=== PATIENT | male | born 1955 | race Caucasian/White ===

== ENCOUNTER 2022-12-09 09:04 | Emergency (ER) | payer MEDICARE, SELFPAY ==
[2022-12-09 09:24] VITALS: BP 168/82; PULSE 77; RESP 16; TEMP 36.6; O2SAT 97; BMI 27.6
--- NOTE | 2022-12-09 09:34 | ED.MALEGU ---
HPI - Male Genitourinary General Chief complaint: Urogenital-Male Stated complaint: Abdnormal lab results, says bladder infection,cath Time Seen by Provider: 12/09/22 09:20 History of Present Illness HPI Narrative: This gentleman comes to the emergency department today because he has an abnormal urine test and he did not know what to make of it so he messaged his on-call provider who suggested he come to the ER for antibiotics. The setting for this is that he had a urinary catheter placed in late October and is seeing a urologist who is planning on prostate biopsies and further treatment in the coming weeks. Was treated for urinary tract infection with antibiotics which concluded last . The urinalysis result which he is seeing is from that day. He had taken antibiotics within 24 hours of the urine specimen in question. I did review the urine test on his phone in the [employer] [facility] which showed leukocytes, staph epidermidis at [phone] colony-forming units on the culture. The patient has no dysuria, urgency or frequency some vague suprapubic discomfort that has been present ever since the Rodríguez catheter was placed. No flank pain no fever no chills. No nausea no vomiting. Related Data Home Medications Medication Instructions Recorded Confirmed Simvastatin (ZOCOR) 10 mg PO ##0 01/15/12 bupropion HCl 150 mg tablet,12 hr 150 mg PO BID ##0 01/15/12 sustained-release (Wellbutrin SR) Allergies Allergy/AdvReac Type Severity Reaction Status Date / Time INGREDIENT: NKDA - NO KNOWN Allergy Unknown Uncoded 01/01/18 12:13 DRUG ALLERGIES Review of Systems Review of Systems Narrative: GENERAL: Alert, cooperative and in no distress. HEAD: Atraumatic. Normocephalic. EYES: Sclera are clear without icterus. Extraocular movements are full. ENT: No rhinorrhea. Oropharynx is moist. Mouth exam is benign. NECK: Supple. Full range of motion. CARDIOVASCULAR: Normal rate and rhythm without murmur gallop or rub. RESPIRATORY: Clear to auscultation. Breath sounds equal bilaterally. No wheezes, rales, or rhonchi. GASTROINTESTINAL: Abdomen soft, non-tender, nondistended. EXTREMITIES: No edema, full range of motion. No obvious trauma. BACK: Normal inspection, no CVA tenderness. NEURO: Nonfocal examination, normal speech, normal gait. SKIN: No rash or erythema of visible areas PSYCH: Normally oriented. Normal range of affect. Appropriate behavior Exam Initial Vital Signs Initial Vital Signs: Vital Signs Temperature 97.8 F 12/09/22 09:24 Pulse Rate 77 12/09/22 09:24 Respiratory Rate 16 12/09/22 09:24 Blood Pressure 168/82 H 12/09/22 09:24 Pulse Oximetry 97 12/09/22 09:24 Oxygen Delivery Method Room Air 12/09/22 09:24 Course Course Course Narrative: We had a lengthy discussion about the nature of urinalysis results in the setting of Rodríguez catheter. I do not think antibiotics are indicated at this time. I recommend outpatient follow-up this coming week. I think the risks of antibiotics far outweigh the expected benefit at this point. Repeat urinalysis is also not indicated given his lack of symptoms. Vital Signs Vital signs: Vital Signs - 8 hr 12/09/22 09:24 Temperature 97.8 F Pulse Rate 77 Respiratory Rate 16 Blood Pressure 168/82 H Pulse Oximetry 97 Oxygen Delivery Method Room Air Discharge Plan Departure Patient Disposition: Home Clinical Impression: Abnormal result on screening urine test Activity Restrictions/Additional Instructions: I do not think that there is any need for action at this time. I do not believe that additional antibiotics are indicated or appropriate. I think they are much more likely to cause problems than benefit you. Unless you develop symptoms of infection such as chills, fever, abdominal pain, etcetera, I think it is safe to wait until you talk to your urologist or primary care doctor this coming week about next appropriate steps for evaluation and treatment. People who have indwelling Rodríguez catheters uniformly have abnormal urine tests. Unless you have symptoms of urinary tract infection almost universally the recommendation is to avoid antibiotics. Prescriptions: No Action bupropion HCl [Wellbutrin SR] 150 MG tablet extended release 12 hr 150 mg PO BID Qty: 0 Simvastatin (ZOCOR) 10 mg PO Qty: 0 Referrals: Katie Hirsch MD [Primary Care Provider] - Stand Alone Forms: Patient Portal/API
== END 2022-12-09 09:38 | disposition home or self-care (01) ==
PROVIDERS: Emergency Provider Family Medicine Addiction Medicine; PCP Family Medicine
DX: R82.90 Unspecified abnormal findings in urine (principal)
CPT/HCPCS: 99281

== ENCOUNTER 2023-07-13 17:09 | Emergency (ER) | payer MEDICARE, SELFPAY ==
[2023-07-13] VITALS (17 sets, daily range): BP systolic 138–205; BP diastolic 83–118; PULSE 66–96; RESP 9–43; TEMP 36.7; O2SAT 93–99; BMI 28.2
--- NOTE | 2023-07-13 17:18 | DI.RAD.S_ITS ---
PROCEDURE: XR CHEST 1V INDICATIONS: chest pain TECHNIQUE: One view of the chest was acquired. COMPARISON: None. FINDINGS: Surgical changes and devices: None. Lungs and pleura: Lungs are clear. No pleural effusions or pneumothorax. Mediastinum: Mediastinal contours appear normal. Heart size is enlarged. Atherosclerotic vascular calcification noted in the aortic arch. Bones and chest wall: No suspicious bony lesions. Overlying soft tissues appear unremarkable. IMPRESSION: Cardiomegaly without vascular congestion Approved by: Jw Daniels M.D. on 07/13/2023 at 17:23
[2023-07-13 17:31] LABS: Add Manual Diff / Slide Review NO; Basophils Absolute Auto 0 /uL (0-100); Eosinophils Absolute Auto 100 /uL (0-450); Eosinophils Percent Auto 2.6 % (2-4); Hematocrit 36.9 % (41-53); Hemoglobin 12.6 g/dL (13.5-17.5); Lymphocytes Absolute Auto 1300 /uL (1100-4500); Mean Corpuscular HGB Conc 34.1 % (30-36); Mean Corpuscular Hemoglobin 31.7 PG (26-34); Mean Corpuscular Volume 93.2 fL (80-100); Monocytes Absolute Auto 600 /uL (0-900); Monocytes Percent Auto 12.3 % (3-14); Neutrophils Absolute Auto 3000 /uL (1500-7000); Neutrophils Percent Auto 59.1 % (50-75); Platelet Count 188 X10^3/uL (150-400); Red Blood Cell Count 3.97 X10^6/uL (4.5-5.9)
[2023-07-13 17:45] LABS: Prothrombin Time 11.2 SECONDS (10.1-12.7)
[2023-07-13 17:47] LABS: PTT Partial Thromboplastin Tim 27 SECONDS (26-36)
[2023-07-13 17:52] LABS: Alanine Aminotransferase 24 IU/L (<50); Albumin 3.8 g/dL (3.5-5.0); Albumin Globulin Ratio 1.4 (1.0-2.8); Alkaline Phosphatase 121 U/L (38-126); Aspartate Aminotransferase 37 IU/L (17-59); BUN Creatinine Ratio 21.5 (6-22); Bilirubin Total 0.2 mg/dL (0.2-1.3); Blood Urea Nitrogen 26 mg/dL (9-20); Calcium 9.6 mg/dL (8.4-10.2); Carbon Dioxide 29 mmol/L (22-32); Chloride 103 mmol/L (98-107); Creatine Kinase 258 U/L (55-170); Estimated Glomerular Filt Rate > 60 mL/min (>60); Globulin 2.8 g/dL (1.7-4.1); Glucose 99 mg/dL (80-110); HEMOLYSIS < 15 (0-50); Magnesium 2.1 mg/dL (1.6-2.3); Potassium 3.8 mmol/L (3.4-5.1); Sodium 138 mmol/L (137-145); Total Protein 6.6 g/dL (6.3-8.2)
[2023-07-13] MEDS: ONDANSETRON 4 MG/2 ML INJ IV ×2 (17:55→18:17)
[2023-07-13 18:03] LABS: Troponin I < 0.012 ng/mL (0.01-0.034)
[2023-07-13 18:06] LABS: Lipase 105 U/L (23-300)
--- NOTE | 2023-07-13 18:08 | ED_ITS ---
HPI - Abdominal Pain General Chief Complaint: Abdominal Pain Stated Complaint: Abd Pain Time Seen by Provider: 07/13/23 17:09 Source: patient and EMS Mode of arrival: EMS Limitations: no limitations History of Present Illness HPI narrative: 68-year-old male with history of prostate cancer had prostatectomy month and a half ago on 3 antidepressants in a new testosterone john as a month ago. Patient presents with nausea vomiting and epigastric pain that radiates up to his chest, his back as well as down into his abdomen. He states this started fairly abruptly today but has been gradually worsening. Patient notes he did have some non past rise apple juice which was sort of STEMI and had a little bit of dirt in it that was given to him several days ago thinks he might have some food poisoning. Patient denies fevers, denies diaphoresis, no passing out, no cold cough or congestion. Patient denies any diarrhea he states no bowel movement for 24 hours had a very small pebble of stool this afternoon but did have bowel movement yesterday. 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 He states his emesis has been mostly dry heaves but sometimes food. Patient states no dysuria, urgency or frequency. Denies any pain or weakness radiating down his legs. Patient states home meds including bupropion, mirtazapine, fluoxetine and now testosterone john. He states surgical history includes prostatectomy a month and a half ago, wrist surgery, sleep apnea surgery. Denies any drug allergies. No tobacco, alcohol or illicit. Patient lives on [address]. Related Data Home Medications Medication Instructions Recorded Confirmed Simvastatin (ZOCOR) 10 mg PO ##0 01/15/12 bupropion HCl 150 mg tablet,12 hr 150 mg PO BID ##0 01/15/12 sustained-release (Wellbutrin SR) Allergies Allergy/AdvReac Type Severity Reaction Status Date / Time No Known Drug Allergies Allergy Verified 07/13/23 17:18 Review of Systems Review of Systems ROS Unobtainable: All systems reviewed & are unremarkable except as noted in HPI and below Patient History Social History Smoking Status: Former smoker Smoking Status: Former smoker alcohol intake frequency: 0-2 drinks per day Substance Use Type: does not use Exam Narrative Exam Narrative: GENERAL: Alert and oriented x three, well-nourished male in moderate distress. HEENT: Head normocephalic, atraumatic, EOMI, pupils reactive, face symmetric, moist mucous membranes NECK: Supple, full range of motion CARDIOVASCULAR: Regular rate and rhythm without murmurs, rubs or gallops. RESPIRATORY: Breath sounds equal bilaterally, no wheezes rales or rhonchi. No tachypnea. No accessory muscle use. ABDOMEN: Soft, nontender. Normoactive bowel sounds all 4 quadrants. No guarding or rebound, rigidity, no mass, no pulsatile mass or bruit. Patient has a very small amount of light brown emesis with food an active dry heaves in the room. : No CVA tenderness BACK: No cervical, thoracic or lumbar vertebral point tenderness. Patient has normal range of motion. Patient's gait is normal. EXTREMITIES: Normal range of motion, no clubbing or edema. Neurovascularly intact NEUROLOGICAL: Cranial nerves II through XII grossly intact. Moving all extremities SKIN: Warm, dry, no petechiae, no rashes or lesions. Initial Vital Signs Initial Vital Signs: Vital Signs Pulse Rate 67 07/13/23 17:16 Respiratory Rate 14 07/13/23 17:16 Blood Pressure 172/88 H 07/13/23 17:16 Pulse Oximetry 99 07/13/23 17:16 Oxygen Delivery Method Room Air 07/13/23 17:16 Course Orders Ordered: ED Orders 07/13/23 17:18 XR chest 1V Stat EKG-12 Lead Stat 07/13/23 17:22 Complete Blood Count AUTO DIFF Stat Comprehensive Metabolic Panel Stat Lipase Stat Magnesium Stat PTT Partial Thromboplastin Hira Stat Prothrombin Time INR Stat Troponin & CK Cardiac Panel Stat 07/13/23 18:21 CT angio chest abdomen pelvis Stat 07/13/23 19:16 Covid-19 + FLU A/B + RSV - PCR Stat Discontinued Medications Hydrocodone Bitart/Acetaminophen (Hydrocodone/Acet 5/325 Prepack) 1 bottle MISC SEEINSTR ONE Stop: 07/13/23 21:47 Last Admin: 07/13/23 22:01 Dose: 1 bottle Documented By: TAYA Al Hydrox/Mg Hydrox/Simethicone 20 ml/ Lidocaine HCl 15 ml 0 ml PO NOW ONE Stop: 07/13/23 21:09 Last Admin: 07/13/23 21:10 Dose: 35 ml Documented By: RL Ketorolac Tromethamine (Ketorolac 30 Mg/Ml Vial) 15 mg IV NOW ONE Stop: 07/13/23 18:22 Last Admin: 07/13/23 18:26 Dose: 15 mg Documented By: TAYA Lorazepam (Lorazepam 2 Mg/Ml Inj) 0.5 mg IV NOW ONE Stop: 07/13/23 18:22 Last Admin: 07/13/23 18:26 Dose: 0.5 mg Documented By: TAYA Morphine Sulfate (Morphine 4 Mg/Ml Inj) 4 mg IV NOW ONE Stop: 07/13/23 21:04 Last Admin: 07/13/23 21:46 Dose: Not Given Documented By: TAYA Ondansetron HCl (Ondansetron 4 Mg/2 Ml Inj) 4 mg IV NOW ONE Stop: 07/13/23 17:53 Last Admin: 07/13/23 17:55 Dose: 4 mg Documented By: TAYA Ondansetron HCl (Ondansetron 4 Mg/2 Ml Inj) 4 mg IV NOW ONE Stop: 07/13/23 18:18 Last Admin: 07/13/23 18:17 Dose: 4 mg Documented By: TAYA Ondansetron HCl (Ondansetron 4 Mg Odt Prepack) 1 bottle MISC SEEINSTR ONE Stop: 07/13/23 21:02 Last Admin: 07/13/23 22:01 Dose: 1 bottle Documented By: TAYA Ondansetron HCl (Ondansetron 4 Mg Odt Prepack) 1 bottle MISC SEEINSTR ONE Stop: 07/13/23 21:47 Last Admin: 07/13/23 21:47 Dose: Not Given Documented By: TAYA Vital Signs Vital signs: Vital Signs - 8 hr 07/13/23 17:16 07/13/23 17:18 07/13/23 17:19 Temperature Pulse Rate 67 69 67 Respiratory Rate 14 43 H 39 H Blood Pressure 172/88 H Pulse Oximetry 99 98 97 Oxygen Delivery Method Room Air 07/13/23 17:19 07/13/23 17:30 07/13/23 17:31 Temperature Pulse Rate 70 71 Respiratory Rate 36 H 36 H Blood Pressure 172/88 H Pulse Oximetry 97 95 Oxygen Delivery Method 07/13/23 17:31 07/13/23 17:50 07/13/23 17:51 Temperature 98.1 F Pulse Rate Respiratory Rate Blood Pressure 177/104 H 187/105 H Pulse Oximetry Oxygen Delivery Method 07/13/23 17:51 07/13/23 18:00 07/13/23 18:00 Temperature Pulse Rate 71 70 Respiratory Rate 30 H 36 H Blood Pressure 179/99 H Pulse Oximetry 96 97 Oxygen Delivery Method 07/13/23 18:15 07/13/23 18:15 07/13/23 18:46 Temperature Pulse Rate 96 H 75 Respiratory Rate 37 H 41 H Blood Pressure 205/118 H Pulse Oximetry 96 Oxygen Delivery Method 07/13/23 19:00 07/13/23 19:30 07/13/23 20:00 Temperature Pulse Rate 71 70 69 Respiratory Rate 24 22 24 Blood Pressure Pulse Oximetry 96 93 93 Oxygen Delivery Method Room Air 07/13/23 20:30 07/13/23 20:45 07/13/23 20:45 Temperature Pulse Rate 67 69 Respiratory Rate 20 9 L Blood Pressure 147/87 H Pulse Oximetry 94 95 Oxygen Delivery Method 07/13/23 21:00 07/13/23 21:00 07/13/23 22:02 Temperature Pulse Rate 66 83 Respiratory Rate 25 H Blood Pressure 138/83 145/90 H Pulse Oximetry 95 98 Oxygen Delivery Method Room Air MDM - Abdominal Pain Lab Data 07/13/23 17:22 07/13/23 17:22 Labs: Lab Results 07/13/23 07/13/23 Range/Units 17:22 19:16 WBC 5.0 (4.5-11.0) X10^3/uL RBC 3.97 L (4.5-5.9) X10^6/uL Hgb 12.6 L (13.5-17.5) g/dL Hct 36.9 L (41-53) % MCV 93.2 (80-100) fL MCH 31.7 (26-34) PG MCHC 34.1 (30-36) % RDW 13.0 (11.6-14.8) % Plt Count 188 (150-400) X10^3/uL Neut % (Auto) 59.1 (50-75) % Lymph % (Auto) 25.0 (25-40) % Sharp % (Auto) 12.3 (3-14) % Eos % (Auto) 2.6 (2-4) % Baso % (Auto) 1.0 (0-2) % Neut # (Auto) 3000 (7165-6911) /uL Lymph # (Auto) 1300 (3721-1325) /uL Sharp # (Auto) 600 (0-900) /uL Eos # (Auto) 100 (0-450) /uL Baso # (Auto) 0 (0-100) /uL PT 11.2 (10.1-12.7) SECONDS INR 1.0 (0.9-1.3) APTT 27 (26-36) SECONDS Sodium 138 (137-145) mmol/L Potassium 3.8 (3.4-5.1) mmol/L Chloride 103 (98-107) mmol/L Carbon Dioxide 29 (22-32) mmol/L BUN 26 H (9-20) mg/dL Creatinine 1.21 (0.66-1.25) mg/dL Estimated GFR > 60 (>60) mL/min BUN/Creatinine Ratio 21.5 (6-22) Glucose 99 (80-110) mg/dL Calcium 9.6 (8.4-10.2) mg/dL Magnesium 2.1 (1.6-2.3) mg/dL Total Bilirubin 0.2 (0.2-1.3) mg/dL AST 37 (17-59) IU/L ALT 24 (<50) IU/L Alkaline Phosphatase 121 (38-126) U/L Total Creatine Kinase 258 H (55-170) U/L Troponin I < 0.012 (0.01-0.034) ng/mL Total Protein 6.6 (6.3-8.2) g/dL Albumin 3.8 (3.5-5.0) g/dL Globulin 2.8 (1.7-4.1) g/dL Albumin/Globulin Ratio 1.4 (1.0-2.8) Lipase 105 (23-300) U/L SARS-CoV-2 (PCR) Negative (Negative) Influenza A (RT-PCR) Flu a negative (NEGATIVE) Influenza B (RT-PCR) Flu b negative (NEGATIVE) RSV (PCR) Negative (Negative) Point of care testing: Urine Dip Bedside Urine Glucose Negative Bedside Urine Bilirubin - Negative Bedside Urine Ketone - Negative Urine Specific [place] 1.010 Bedside Urine Occult Blood - Negative Bedside Urine pH 7.0 Bedside Urine Protein - Negative Bedside Urine Urobilinogen - Negative Bedside Urine Nitrite - Negative Bedside Urine Leukocytes - Negative Esterase Imaging Data Chest x-ray: Radiologist's Impression: Close Chest/Abdomen/Pelvis CTA (Signed) [facility] 07/13/23 Chest X-Ray (Signed) [facility] 07/13/23 Launch?[address] [address] XRay Report Signed Patient: Alex Pierce MR#: [id number] : 1955 Acct:[id number] Age/Sex: 68 / M Date of Service: 07/13/23 Loc: ED Accession Number: [id number] Procedure: XR chest 1V Ordering Provider: Katharina Thayer D.O. PROCEDURE: XR CHEST 1V INDICATIONS: chest pain TECHNIQUE: One view of the chest was acquired. COMPARISON: None. FINDINGS: Surgical changes and devices: None. Lungs and pleura: Lungs are clear. No pleural effusions or pneumothorax. Mediastinum: Mediastinal contours appear normal. Heart size is enlarged. Atherosclerotic vascular calcification noted in the aortic arch. Bones and chest wall: No suspicious bony lesions. Overlying soft tissues appear unremarkable. IMPRESSION: Cardiomegaly without vascular congestion Approved by: Jw Daniels M.D. on 07/13/2023 at 17:23 CTA chest/abd/pelvis: Radiologist's Impression: Alex Pierce??68??M??1955 ? Allergy/Adv: No Known Drug Allergies Close Chest/Abdomen/Pelvis CTA (Signed) [facility] 07/13/23 Chest X-Ray (Signed) [facility] - 07/13/23 Launch?[address] [address] [address] Scan Report Signed Patient: Alex Pierce MR#: [id number] : 1955 Acct:[id number] Age/Sex: 68 / M Date of Service: 07/13/23 Loc: ED Accession Number: [id number] Procedure: CT angio chest abdomen pelvis Ordering Provider: Trina Yoder D.O. PROCEDURE: CT ANGIO CHEST ABDOMEN PELVIS INDICATIONS: thoracic, epigastric to abd, vomiting, no BM x 24 hours TECHNIQUE: Precontrast 5 mm thick sections acquired from the lung apices to the iliac crests. After the administration of intravenous contrast, 2.5 mm thick sections again acquired from the lung apices to the iliac crests. Maximum intensity projection (MIP) oblique sagittal and coronal reformats were then acquired. For radiation dose reduction, the following was used: automated exposure control. COMPARISON: None. FINDINGS: Chest: Cardiovascular: Heart size is normal. No evidence of pulmonary embolism, aortic aneurysm or dissection. Lungs and pleural spaces: Mild scarring chronic interstitial change noted in the right upper lobe anteriorly. Dependent atelectasis noted. No focal infiltrate, pneumothorax or pleural effusion. Lymph nodes: No mediastinal, hilar or axillary adenopathy. Mediastinum: Unremarkable. No hiatal hernia. Thyroid within normal limits. Chest Wall and Bones: Unremarkable. No acute fracture. Abdomen and Pelvis: Liver: Hypodensities in the liver subcentimeter likely reflects cysts. Biliary system: Calcified stones noted in the lumen of the gallbladder. No pericholecystic inflammatory change. No intra or extrahepatic bile duct dilation. Pancreas: Unremarkable without mass or inflammation evident. Spleen: Normal in size and density. Adrenals: Normal morphology and density. Reproductive system: Prostate ectomy Urinary system: Normal renal size and attenuation. No renal calculi, hydronephrosis, or solid mass present. Urinary bladder unremarkable. Gastrointestinal system: The bowel is unremarkable with no evidence of bowel obstruction or inflammation. The stomach appears unremarkable. Appendix: Normal appendix identified. No evidence of appendicitis. Lymph nodes: No mesenteric or retroperitoneal adenopathy. Peritoneal spaces: No free air. No free fluid. Vasculature: The IVC, aorta and iliac vasculature are unremarkable. Abdominal wall: Abdominal wall intact without evidence of ventral or inguinal hernias. Musculoskeletal: Normal bone mineralization. Degenerative disc disease and arthropathy noted in lower lumbar spine. No acute fractures. IMPRESSION: 1. No evidence of pulmonary embolism, aortic dissection or aneurysm. 2. Small focus of right upper lobe scarring or atelectasis noted anteriorly. No gross pulmonary infiltrate, pneumothorax or pleural effusion. 3. Cholelithiasis without CT evidence of acute cholecystitis Approved by: Jw Daniels M.D. on 07/13/2023 at 17:56 ECG Data Attestation: I personally reviewed and interpreted this ECG as follows: Interpretation: Sinus rhythm, left axis deviation, nonspecific change. Rate of 60 6p are 154 QRS 88 QTC of 459. Patient has prior from 03/30/2009 which appears similar. [facility] Narrative Medical decision making narrative: 68-year-old male comes in with fairly sudden onset of nausea vomiting without diarrhea, epigastric pain that he states radiates to his chest his thoracic back and down to his abdomen. Patient has had little bit emesis, initial workup shows normal white count, hemoglobin of 12.6 platelets of 188, electrolytes are appropriate 138 and 3.8, BUN 26 creatinine 1.21, glucose 99 INR is 1 LFTs are negative CK is 258 with negative troponin lipase is negative. Urine is negative. No acute EKG changes. Patient had chest x-ray shows cardiomegaly. CT angio was obtained secondary to his pain. Does not show any aortic changes, chest x-ray shows some old possible scarring, no obvious pneumonia, patient has cholelithiasis but without signs of infection. He is nontender in the right upper quadrant on exam and CT angio overall is otherwise negative. COVID/influenza/RSV panel was sent and is negative. Patient does suspect this maybe food poisoning as he had some non past rise apple juice that he states was pretty scummy and maybe questionable. He is not sure exactly how little it is but at least several days. Based on the do feel to appropriate for some additional imaging. Patient is nontender on examination. Patient was given antinausea medications with minimal improvement, fluids, was given additional dose as well as some pain medication. On recheck patient has been feeling much improved but states pain is starting recurr in lower abdomen, No increase in pain with palpatin. States no increase in nausea. BP has improved in department was watching videos on phone on recheck. Patient had GI cocktail with improvement of symptoms. He is continuing to be improved we will discharge home with antinausea and pain medication with return precautions. Discharge Plan Departure Patient Disposition: Home Clinical Impression: Cholelithiasis, Nausea and vomiting Instructions: DI for Abdominal Pain-Adult Activity Restrictions/Additional Instructions: Your imaging today did show gallstones but no signs of infection. Your workup today overall has been reassuring. If you have persistent symptoms but significantly improved follow up with primary care if worsening please return. You may take Zofran 1 tablet every 6 hours as needed for nausea. You may take Tylenol up to a 1000 mg every 6 hours and/or ibuprofen up to 600 mg every 6 hours as needed for pain. If in adequate you may take narcotic pain medication as prescribed. You may take 1 or 2 tablets every 6 hours as needed for pain. This medication can make you sleepy do not drive, perform hazardous activities or make any major decisions while taking it. This medication will make you constipated please take a stool softener once to twice daily until stools are soft and regular. Please return for new or worsening symptoms, fevers, new or worsening chest pain, shortness of breath, lightheadedness or passing out, persistent vomiting, no abdominal back or flank pain or other new or concerning changes. Prescriptions: No Action bupropion HCl [Wellbutrin SR] 150 MG tablet extended release 12 hr 150 mg PO BID Qty: 0 Simvastatin (ZOCOR) 10 mg PO Qty: 0 Referrals: Katie Hirsch MD [Primary Care Provider] - Stand Alone Forms: Patient Portal/API
--- NOTE | 2023-07-13 18:21 | DI.CT.S_ITS ---
PROCEDURE: CT ANGIO CHEST ABDOMEN PELVIS INDICATIONS: thoracic, epigastric to abd, vomiting, no BM x 24 hours TECHNIQUE: Precontrast 5 mm thick sections acquired from the lung apices to the iliac crests. After the administration of intravenous contrast, 2.5 mm thick sections again acquired from the lung apices to the iliac crests. Maximum intensity projection (MIP) oblique sagittal and coronal reformats were then acquired. For radiation dose reduction, the following was used: automated exposure control. COMPARISON: None. FINDINGS: Chest: Cardiovascular: Heart size is normal. No evidence of pulmonary embolism, aortic aneurysm or dissection. Lungs and pleural spaces: Mild scarring chronic interstitial change noted in the right upper lobe anteriorly. Dependent atelectasis noted. No focal infiltrate, pneumothorax or pleural effusion. Lymph nodes: No mediastinal, hilar or axillary adenopathy. Mediastinum: Unremarkable. No hiatal hernia. Thyroid within normal limits. Chest Wall and Bones: Unremarkable. No acute fracture. Abdomen and Pelvis: Liver: Hypodensities in the liver subcentimeter likely reflects cysts. Biliary system: Calcified stones noted in the lumen of the gallbladder. No pericholecystic inflammatory change. No intra or extrahepatic bile duct dilation. Pancreas: Unremarkable without mass or inflammation evident. Spleen: Normal in size and density. Adrenals: Normal morphology and density. Reproductive system: Prostate ectomy Urinary system: Normal renal size and attenuation. No renal calculi, hydronephrosis, or solid mass present. Urinary bladder unremarkable. Gastrointestinal system: The bowel is unremarkable with no evidence of bowel obstruction or inflammation. The stomach appears unremarkable. Appendix: Normal appendix identified. No evidence of appendicitis. Lymph nodes: No mesenteric or retroperitoneal adenopathy. Peritoneal spaces: No free air. No free fluid. Vasculature: The IVC, aorta and iliac vasculature are unremarkable. Abdominal wall: Abdominal wall intact without evidence of ventral or inguinal hernias. Musculoskeletal: Normal bone mineralization. Degenerative disc disease and arthropathy noted in lower lumbar spine. No acute fractures. IMPRESSION: 1. No evidence of pulmonary embolism, aortic dissection or aneurysm. 2. Small focus of right upper lobe scarring or atelectasis noted anteriorly. No gross pulmonary infiltrate, pneumothorax or pleural effusion. 3. Cholelithiasis without CT evidence of acute cholecystitis Approved by: Jw Daniels M.D. on 07/13/2023 at 17:56
[2023-07-13] MEDS: KETOROLAC 30 MG/ML VIAL 15 MG IV (18:26)
[2023-07-13] MEDS: LORazepam 2 MG/ML INJ 0.5 MG IV (18:26)
[2023-07-13 19:58] LABS: Influenza A - CEPHEID Flu A NEGATIVE (NEGATIVE); Influenza B - CEPHEID Flu B NEGATIVE (NEGATIVE); Respiratory Syncytial Virus Negative (Negative)
[2023-07-13 20:29] LABS: COVID-19 CEPHEID 4-PLEX PCR Negative (Negative)
[2023-07-13] MEDS: MAG HYDROX/ALUMINUM/SIMETH SUS 20 ML, LIDOCAINE VISCOUS 2% 15 ML PO (21:10)
[2023-07-13] MEDS: HYDROCODONE/ACET 5/325 PREPACK 1 BOTTLE MISC (22:01)
[2023-07-13] MEDS: ONDANSETRON 4 MG ODT PREPACK 1 BOTTLE MISC (22:01)
== END 2023-07-13 22:12 | disposition home or self-care (01) ==
PROVIDERS: Emergency Medicine; Emergency Provider Emergency Medicine; PCP Family Medicine
DX: K80.20 Calculus of gallbladder without cholecystitis without obstruction (principal); R07.9 Chest pain, unspecified; R11.2 Nausea with vomiting, unspecified; Z20.822 Contact with and (suspected) exposure to COVID-19
CPT/HCPCS: 0241U; 36415; 71045; 71275; 74174; 80053; 81003; 82550; 83690; 83735; 84484; 85025; 85610; 85730; 96374; 96375; 96376; 99284; 99285; J1885; J2060; J2405; Q9967

== ENCOUNTER → 2024-02-25 10:10 | Outpatient (CLI) | payer MEDICARE, SELFPAY ==
--- NOTE | 2024-02-25 | DI.US.S_ITS ---
PROCEDURE: US ABDOMEN COMPLETE INDICATIONS: melena, abdominal pain, calculus of gallbladder w/o cholecys TECHNIQUE: Real-time scanning was performed of the abdominal and retroperitoneal organs, with image documentation. COMPARISON: [facility], CT, CT ANGIO CHEST ABDOMEN PELVIS, 07/13/2023, 18:24. FINDINGS: Liver: Liver is normal in size and homogeneous in echotexture. Benign hepatic cysts without nodularity. Gallbladder: Gallbladder sludge versus small stones. No wall thickening or pericholecystic edema to suggest acute cholecystitis. Biliary ducts: Intrahepatic bile ducts are non-dilated. Extrahepatic bile duct caliber measures 14 mm. Normal is 6-7 mm or less in diameter, or 10 mm or less post-cholecystectomy. Pancreas: Visualized portions of the pancreas are sonographically normal. Spleen: Spleen is normal in size and homogeneous in echotexture. Kidneys: Kidneys are normal in size and echotexture. Right kidney measures 9.8 cm long; left kidney measures 10.1 cm long. No hydronephrosis or nephrolithiasis. No solid masses. Aorta: Infrarenal aortic aneurysm measuring 3.1 centimeter. Iliacs: Proximal common iliac arteries are normal in caliber at less than 2.5 cm. IVC: Intrahepatic inferior vena cava is patent. Miscellaneous: No free abdominal fluid. IMPRESSION: Gallbladder sludge versus small stones. No wall thickening or pericholecystic edema to suggest acute cholecystitis. Dilated common bile duct measuring 14 millimeters. Choledocholithiasis is not excluded. Correlate with bilirubin and consider MRCP if concerned about obstruction. Infrarenal aortic aneurysm measuring 3.1 centimeter. Recommend 5 year follow-up with ultrasound. Dictated by: Arie Isbell M.D. on 02/25/2024 at 13:37 Approved by: Arie Isbell M.D. on 02/25/2024 at 13:39
== END ==
PROVIDERS: PCP Family Medicine; Referring Provider Family Medicine; Visit Provider Family Medicine
DX: K92.1 Melena (principal); K83.8 Other specified diseases of biliary tract; K76.89 Other specified diseases of liver; I71.43 Infrarenal abdominal aortic aneurysm, without rupture; R10.30 Lower abdominal pain, unspecified; K80.20 Calculus of gallbladder without cholecystitis without obstruction
CPT/HCPCS: 76700

== ENCOUNTER 2025-04-25 20:56 | Emergency (ER) | payer MEDICARE, SELFPAY ==
[2025-04-25 21:28] VITALS: BP 148/85; PULSE 80; RESP 16; TEMP 36.6; O2SAT 95; BMI 28.8
[2025-04-26] VITALS (7 sets, daily range): BP systolic 160–163; BP diastolic 86–92; PULSE 64–71; O2SAT 92–97
[2025-04-26 02:51] LABS: Culture Indicated Urine Cult Not Indicated
--- NOTE | 2025-04-26 02:54 | DI.CT.S_ITS ---
PROCEDURE: CT ABDOMEN PELVIS WO CON INDICATIONS: Hematuria, calcium oxalate in urinalysis TECHNIQUE: CT of the abdomen and pelvis was obtained without intravenous contrast. Coronal and sagittal reformats were performed. For radiation dose reduction, the following was used: automated exposure control, adjustment of mA and/or kV according to patient size. COMPARISON: [facility], CT, CT ANGIO CHEST ABDOMEN PELVIS, 07/13/2023, 18:24. FINDINGS: Image quality: Diagnostic. Lower Chest: Bibasilar atelectasis. Small hiatal hernia. Heart size is normal. ABDOMEN: Liver: No contour-deforming mass. Multiple hepatic hypodensities are redemonstrated. Gallbladder: Cholelithiasis. Mild contracted gallbladder. No significant pericholecystic stranding identified. Biliary ducts: No biliary dilation. Pancreas: No ductal dilation. Spleen: Size is within normal limits. Adrenal Glands: No adrenal nodules. Kidneys and Ureters: No hydronephrosis. No contour-deforming mass. No renal stones. Bilateral ureters are normal in course and caliber. No ureteral stones seen. No significant perinephric or periureteral stranding. Stomach and Bowel: Normal colonic caliber, without significant wall thickening. Moderate fecal burden seen throughout the colon. Scattered colonic diverticula without acute inflammation. Normal appendix No evidence for small bowel obstruction or associated inflammatory changes. Peritoneum: No abnormal intraperitoneal fluid. No free air. Ventral Wall: No significant hernia. Abdominal Nodes: No retroperitoneal or mesenteric adenopathy by size criteria. Vessels: Aorta and inferior vena cava are normal in size. PELVIS: Pelvic Organs: Unremarkable. Bladder: There is minimal circumferential urinary bladder wall thickening which may be related to incomplete distention; however, cystitis may have a similiar appearance. No urinary bladder stone. Pelvic Nodes: No enlarged lymph nodes. Miscellaneous: No inguinal hernias are seen. Bones: No aggressive osseous abnormality. No acute vertebral body compression fractures. Multilevel spondylitic changes throughout the imaged spine. No suspicious osseous lesions. There is an age-indeterminate anterior compression fracture of the L5 vertebral body that is new since the most recent study dated July 13, 2023. Favor subacute to chronic in etiology. IMPRESSION: Mild urinary bladder wall thickening and minimal perivesicular inflammation. Findings may be seen in the setting of cystitis. Recommend clinical and laboratory correlation. No urinary bladder stone. No evidence for urolithiasis or obstructive uropathy. Cholelithiasis without CT evidence for acute cholecystitis. Age indeterminate anterior compression fracture of the L5 vertebral body which is new since CT dated July 13, 2023. Favor subacute to chronic. Recommend clinical correlation. Consider further evaluation with MRI if there are localizing symptoms. Colonic diverticulosis without acute diverticulitis. Normal appendix. Dictated by: Gutierrez Navas M.D. on 04/26/2025 at 7:27 Approved by: Gutierrez Navas M.D. on 04/26/2025 at 7:39
[2025-04-26 03:07] LABS: Add Manual Diff / Slide Review NO; Hematocrit 38.6 % (41-53); Hemoglobin 13.1 g/dL (13.5-17.5); Lymphocytes Absolute Auto 900 /uL (1100-4500); Mean Corpuscular HGB Conc 34.0 % (30-36); Mean Corpuscular Hemoglobin 32.2 PG (26-34); Mean Corpuscular Volume 94.5 fL (80-100); Platelet Count 199 X10^3/uL (150-400)
--- NOTE | 2025-04-26 03:10 | PC.NURSE ---
Pt to imaging via ED stretcher with wet process technician
--- NOTE | 2025-04-26 03:14 | ED.GENADULT ---
HPI - General Adult General Chief complaint: Urogenital-Male Stated complaint: blood in urine , blood clots Time Seen by Provider: 04/26/25 02:28 Source: patient Mode of arrival: Ambulatory History of Present Illness HPI narrative: 70-year-old male with history of prostate cancer followed by urology at [facility] in [place], for the last 2 days has had intermittent gross hematuria, has incontinence diaper where he has noticed bloody discharge anteriorly, no bloody discharge noted directly from the penis but as a residue from dribbled urine on his diaper anteriorly. No rectal bleeding suspected. No injury or trauma. No painful urination. No fevers or chills. No back pain. He has not recently been taking any antibiotics. He does not take blood thinner medications. No known kidney stones. He had some passage of some small clot, then bloody urine, then clear urine. Related Data Home Medications ?Medication ?Instructions ?Recorded ?Confirmed bupropion HCl 300 mg 24 hr tablet, 300 mg PO DAILY 04/25/25 04/25/25 extended release fluoxetine 40 mg capsule 40 mg PO DAILY 04/25/25 04/25/25 mirtazapine 15 mg tablet 15 mg PO ONCE PM 04/25/25 04/25/25 omeprazole 40 mg capsule,delayed 40 mg PO QAM 04/25/25 04/25/25 release Previous Rx's ?Medication ?Instructions ?Recorded cefdinir 300 mg capsule 300 mg PO BID 10 days #20 caps 04/26/25 Allergies Allergy/AdvReac Type Severity Reaction Status Date / Time No Known Drug Allergies Allergy Verified 04/25/25 21:27 Patient History Social History Smoking Status: Former smoker Smoking Status: Former smoker alcohol intake frequency: 0-2 drinks per day Exam Narrative Exam Narrative: GENERAL: Well-developed patient, in mild distress. HEAD: Atraumatic. Normocephalic. EYES: Pupils equal round and reactive. Extraocular motions intact. No scleral icterus. No injection or drainage. ENT: Nose without bleeding, purulent drainage. Airway patent. NECK: Trachea midline. Non tender CARDIOVASCULAR: Regular rate and rhythm without murmurs, gallops, or rubs. RESPIRATORY: Clear to auscultation. Breath sounds equal bilaterally. No wheezes, rales, or rhonchi. GASTROINTESTINAL: Abdomen soft, non-tender, nondistended. : Circumcised male genitalia without bloody discharge at meatus, no obvious penile coronal lesions. EXTREMITIES: No edema or joint tenderness. BACK: Nontender without deformity or crepitance. No flank tenderness. NEURO: AOx3. Motor functions grossly nonfocal. SKIN: No rash or erythema of visible areas Initial Vital Signs Initial Vital Signs: Vital Signs Temperature 97.8 F 04/25/25 21:28 Pulse Rate 80 04/25/25 21:28 Respiratory Rate 16 04/25/25 21:28 Blood Pressure 148/85 H 04/25/25 21:28 Pulse Oximetry 95 04/25/25 21:28 Oxygen Delivery Method Room Air 04/25/25 21:28 Course Orders Ordered: Discontinued Medications Cefdinir (Cefdinir 300 Mg Capsule) 300 mg PO NOW ONE Stop: 04/26/25 04:10 Last Admin: 04/26/25 04:35 Dose: 300 mg Documented By: Ondansetron HCl (Ondansetron 4 Mg/2 Ml Inj) 4 mg IV NOW PRN PRN Reason: Nausea And Vomiting Ondansetron HCl (Ondansetron 4 Mg Odt) 4 mg PO NOW PRN PRN Reason: Nausea And Vomiting Vital Signs Vital signs: Vital Signs - 8 hr 04/25/25 21:28 04/26/25 02:21 04/26/25 02:22 Temperature 97.8 F Pulse Rate 80 71 Respiratory Rate 16 Blood Pressure 148/85 H Pulse Oximetry 95 93 95 Oxygen Delivery Method Room Air 04/26/25 02:22 Temperature Pulse Rate Respiratory Rate Blood Pressure 162/86 H Pulse Oximetry Oxygen Delivery Method Medical Decision Making Lab Data Lab results reviewed: Yes I reviewed the patient's lab results. Lab results narrative: White blood cell count 5400, hemoglobin 13.1, platelets adequate. Glucose 96. BUN 33 with creatinine 1.26. Serum CO2 30, normal electrolytes. Alkaline phosphatase 134 slight elevation, other liver functions normal. Lipase normal. Urinalysis with red cells, no white cells, no bacteria, calcium oxalate crystals noted. 04/26/25 02:55 04/26/25 02:55 Labs: Lab Results 04/26/25 04/26/25 Range/Units 02:24 02:55 WBC 5.4 (4.5-11.0) X10^3/uL RBC 4.08 L (4.5-5.9) X10^6/uL Hgb 13.1 L (13.5-17.5) g/dL Hct 38.6 L (41-53) % MCV 94.5 (80-100) fL MCH 32.2 (26-34) PG MCHC 34.0 (30-36) % RDW 13.2 (11.6-14.8) % Plt Count 199 (150-400) X10^3/uL Neut % (Auto) 65.0 (50-75) % Lymph % (Auto) 16.9 L (25-40) % Nobles % (Auto) 13.8 (3-14) % Eos % (Auto) 3.4 (2-4) % Baso % (Auto) 0.9 (0-2) % Neut # (Auto) 3500 (0640-7181) /uL Lymph # (Auto) 900 L (3475-0134) /uL Nobles # (Auto) 700 (0-900) /uL Eos # (Auto) 200 (0-450) /uL Baso # (Auto) 100 (0-100) /uL Sodium 139 (137-145) mmol/L Potassium 3.9 (3.4-5.1) mmol/L Chloride 104 (98-107) mmol/L Carbon Dioxide 30 (22-32) mmol/L BUN 33 H (9-20) mg/dL Creatinine 1.26 H (0.66-1.25) mg/dL Estimated GFR > 60 (>60) mL/min BUN/Creatinine Ratio 26.2 H (6-22) Glucose 96 (70-99) mg/dL Calcium 9.3 (8.4-10.2) mg/dL Total Bilirubin 0.2 (0.2-1.3) mg/dL AST 46 (17-59) IU/L ALT 33 (<50) IU/L Alkaline Phosphatase 134 H (38-126) U/L Total Protein 6.8 (6.3-8.2) g/dL Albumin 4.0 (3.5-5.0) g/dL Globulin 2.8 (1.7-4.1) g/dL Albumin/Globulin Ratio 1.4 (1.0-2.8) Lipase 97 (23-300) U/L Urine RBC 30-100/hpf H (0-5/HPF) Urine WBC 0-1/hpf (0-5/HPF) Ur Squamous Epith Cells 1-5 /hpf (0-5/HPF) Calcium Oxalate Crystal Many H Urine Bacteria None seen (None) Urine Mucus 3+ H (Negative) Ur Culture Indicated? Cult not indicated Vol Urine Centrifuged 10ml (spun) Urine Dip Bedside Urine Glucose Negative Bedside Urine Bilirubin + 1 Bedside Urine Ketone - Negative Urine Specific [place] 1.025 Bedside Urine Occult Blood ++ Bedside Urine pH 6.0 Bedside Urine Protein +/- 15 Bedside Urine Urobilinogen - Negative Bedside Urine Nitrite - Negative Bedside Urine Leukocytes - Negative Esterase Point of care testing: Urine Dip Bedside Urine Glucose Negative Bedside Urine Bilirubin + 1 Bedside Urine Ketone - Negative Urine Specific [place] 1.025 Bedside Urine Occult Blood ++ Bedside Urine pH 6.0 Bedside Urine Protein +/- 15 Bedside Urine Urobilinogen - Negative Bedside Urine Nitrite - Negative Bedside Urine Leukocytes - Negative Esterase MDM Narrative Medical decision making narrative: 70-year-old male with history of prostate cancer, recent gross hematuria with bloody residue on dribble urine in diaper. Afebrile, sirs screen negative. Bladder scan without increased bladder volume. Urinalysis pending. Lab data: White blood cell count 5400, hemoglobin 13.1, platelets adequate. Glucose 96. BUN 33 with creatinine 1.26. Serum CO2 30, normal electrolytes. Alkaline phosphatase 134 slight elevation, other liver functions normal. Lipase normal. Urinalysis with red cells, no white cells, no bacteria, calcium oxalate crystals noted. Urine shows presence of uric acid crystals. CT abdomen and pelvis ordered. CT abdomen and pelvis. Impressions: ?No evidence of colitis diverticulitis bowel obstruction obstructive uropathy or acute appendicitis. Bladder wall thickening and antonio vesicular inflammatory changes. These findings can be seen in the setting of cystitis or infection. Large volume of stool within the colon compatible with constipation. ? See tele radiology report. P.o. cefdinir dose for possible urinary tract infection, prescription sent to his pharmacy. FU with PCP this week on [place], and with his [facility] urologist for further workup of hematuria if urine culture negative. DC home. Return precaustions discussed. Discharge Plan Departure Patient Disposition: Home Clinical Impression: Urinary tract infection, Gross hematuria Instructions: DI for Urinary Tract Infection (UTI), DI for Urinary Retention in Men Activity Restrictions/Additional Instructions: Bloody looking urine discharge on your diaper recent. Urinalysis shows presence of blood, and crystals, minimal bacteria. CT abdomen and pelvis suspicious for cystitis bladder infection like changes. Urine culture was requested. Oral antibiotics started. Prescription sent for further antibiotics to your pharmacy. Take antibiotics as directed. Drink plenty of fluids. Consider follow up with your regular doctor to check for resolution of the blood in your urine on oral antibiotics. If the hematuria persists despite a course of antibiotics then consider urology follow up for possible cystoscopy and other workup. Return earlier to this/nearest emergency department for any change worsening symptoms or any concerns prior. Prescriptions: New cefdinir 300 mg capsule 300 mg PO BID 10 Days Qty: 20 0RF No Action fluoxetine 40 mg capsule 40 mg PO DAILY omeprazole 40 mg capsule,delayed release(DR/EC) 40 mg PO QAM mirtazapine 15 mg tablet 15 mg PO ONCE PM bupropion HCl 300 mg tablet extended release 24 hr 300 mg PO DAILY Referrals: Katie Hirsch MD [Primary Care Provider, Family Practice] Stand Alone Forms: Patient Portal/API
[2025-04-26 03:17] LABS: Alanine Aminotransferase 33 IU/L (<50); Albumin 4.0 g/dL (3.5-5.0); Albumin Globulin Ratio 1.4 (1.0-2.8); Alkaline Phosphatase 134 U/L (38-126); Blood Urea Nitrogen 33 mg/dL (9-20); Calcium 9.3 mg/dL (8.4-10.2); Carbon Dioxide 30 mmol/L (22-32); Chloride 104 mmol/L (98-107); Estimated Glomerular Filt Rate > 60 mL/min (>60); Globulin 2.8 g/dL (1.7-4.1); Glucose 96 mg/dL (70-99); HEMOLYSIS 20 (0-50); Lipase 97 U/L (23-300); Potassium 3.9 mmol/L (3.4-5.1); Sodium 139 mmol/L (137-145); Total Protein 6.8 g/dL (6.3-8.2)
[2025-04-26] MEDS: CEFDINIR 300 MG CAPSULE PO (04:35)
== END 2025-04-26 04:36 | disposition home or self-care (01) ==
PROVIDERS: Emergency Provider Emergency Medicine; PCP Family Medicine
DX: N39.0 Urinary tract infection, site not specified (principal); R31.0 Gross hematuria
CPT/HCPCS: 36415; 51798; 74176; 80053; 81003; 81015; 83690; 85025; 99284

== ENCOUNTER → 2025-08-23 09:13 | Outpatient (CLI) | payer MEDICARE, SELFPAY | LOC: WC 09:20 | PROVIDERS: PCP Nurse Practitioner; Visit Provider Surgery | DX: L59.8 Other specified disorders of the skin and subcutaneous tissue related to radiation (principal); N30.41 Irradiation cystitis with hematuria; C61 Malignant neoplasm of prostate; Y84.2 Radiological procedure and radiotherapy as the cause of abnormal reaction of the patient, or of later complication, without mention of misadventure at the time of the procedure | CPT/HCPCS: 99203; 99212 ==

== ENCOUNTER → 2025-08-25 09:05 | Outpatient (CLI) | payer MEDICARE, SELFPAY | LOC: WC 09:07 | PROVIDERS: PCP Nurse Practitioner; Referring Provider Nurse Practitioner; Visit Provider Surgery | DX: L59.8 Other specified disorders of the skin and subcutaneous tissue related to radiation (principal); Y84.2 Radiological procedure and radiotherapy as the cause of abnormal reaction of the patient, or of later complication, without mention of misadventure at the time of the procedure; N30.41 Irradiation cystitis with hematuria; C61 Malignant neoplasm of prostate | CPT/HCPCS: 99183; G0277 ==

== ENCOUNTER → 2025-08-26 13:18 | Outpatient (CLI) | payer MEDICARE, SELFPAY | LOC: WC 13:28 | PROVIDERS: PCP Nurse Practitioner; Referring Provider Nurse Practitioner; Visit Provider Surgery | DX: L59.8 Other specified disorders of the skin and subcutaneous tissue related to radiation (principal); Y84.2 Radiological procedure and radiotherapy as the cause of abnormal reaction of the patient, or of later complication, without mention of misadventure at the time of the procedure; N30.41 Irradiation cystitis with hematuria; C61 Malignant neoplasm of prostate | CPT/HCPCS: 99183; G0277 ==

== ENCOUNTER → 2025-08-27 08:24 | Outpatient (CLI) | payer MEDICARE, SELFPAY | PROVIDERS: PCP Nurse Practitioner; Visit Provider Internal Medicine | DX: L59.8 Other specified disorders of the skin and subcutaneous tissue related to radiation (principal); Y84.2 Radiological procedure and radiotherapy as the cause of abnormal reaction of the patient, or of later complication, without mention of misadventure at the time of the procedure; N30.41 Irradiation cystitis with hematuria; C61 Malignant neoplasm of prostate | CPT/HCPCS: 99183; G0277 ==

== ENCOUNTER → 2025-08-30 08:52 | Outpatient (CLI) | payer MEDICARE, SELFPAY | LOC: WC 08:58 | PROVIDERS: PCP Nurse Practitioner; Visit Provider Surgery | DX: L59.8 Other specified disorders of the skin and subcutaneous tissue related to radiation (principal); Y84.2 Radiological procedure and radiotherapy as the cause of abnormal reaction of the patient, or of later complication, without mention of misadventure at the time of the procedure; N30.41 Irradiation cystitis with hematuria; C61 Malignant neoplasm of prostate | CPT/HCPCS: 99183; G0277 ==

== ENCOUNTER → 2025-08-31 09:05 | Outpatient (CLI) | payer MEDICARE, SELFPAY | LOC: WC 09:11 | PROVIDERS: PCP Nurse Practitioner; Visit Provider Surgery | DX: L59.8 Other specified disorders of the skin and subcutaneous tissue related to radiation (principal); Y84.2 Radiological procedure and radiotherapy as the cause of abnormal reaction of the patient, or of later complication, without mention of misadventure at the time of the procedure; N30.41 Irradiation cystitis with hematuria; C61 Malignant neoplasm of prostate | CPT/HCPCS: 99183; G0277 ==

== ENCOUNTER → 2025-09-01 15:44 | Outpatient (CLI) | payer MEDICARE, SELFPAY | LOC: WC 15:46 | PROVIDERS: PCP Nurse Practitioner; Visit Provider Surgery | DX: L59.8 Other specified disorders of the skin and subcutaneous tissue related to radiation (principal); Y84.2 Radiological procedure and radiotherapy as the cause of abnormal reaction of the patient, or of later complication, without mention of misadventure at the time of the procedure; N30.41 Irradiation cystitis with hematuria; C61 Malignant neoplasm of prostate | CPT/HCPCS: 99183; G0277 ==

== ENCOUNTER → 2025-09-02 11:14 | Outpatient (CLI) | payer MEDICARE, SELFPAY ==
[2025-09-02 12:43] LABS: Prostate Specific Antigen < 0.064 ng/mL (0.10-4.00)
== END ==
PROVIDERS: PCP Nurse Practitioner; Referring Provider Internal Medicine; Visit Provider Internal Medicine
DX: C61 Malignant neoplasm of prostate (principal)
CPT/HCPCS: 36415; 84153

== ENCOUNTER → 2025-09-02 16:39 | Outpatient (CLI) | payer MEDICARE, SELFPAY | PROVIDERS: PCP Nurse Practitioner; Referring Provider Nurse Practitioner; Visit Provider Surgery | DX: L59.8 Other specified disorders of the skin and subcutaneous tissue related to radiation (principal); Y84.2 Radiological procedure and radiotherapy as the cause of abnormal reaction of the patient, or of later complication, without mention of misadventure at the time of the procedure; N30.41 Irradiation cystitis with hematuria; C61 Malignant neoplasm of prostate | CPT/HCPCS: 99183; G0277 ==

== ENCOUNTER → 2025-09-03 08:38 | Outpatient (CLI) | payer MEDICARE, SELFPAY | LOC: WC 08:45 | PROVIDERS: PCP Nurse Practitioner; Visit Provider Physician Assistant | DX: L59.8 Other specified disorders of the skin and subcutaneous tissue related to radiation (principal); Y84.2 Radiological procedure and radiotherapy as the cause of abnormal reaction of the patient, or of later complication, without mention of misadventure at the time of the procedure; N30.41 Irradiation cystitis with hematuria; C61 Malignant neoplasm of prostate | CPT/HCPCS: 99183; G0277 ==

== ENCOUNTER → 2025-09-06 10:02 | Outpatient (CLI) | payer MEDICARE, SELFPAY | PROVIDERS: PCP Nurse Practitioner; Referring Provider Nurse Practitioner; Visit Provider Surgery | DX: L59.8 Other specified disorders of the skin and subcutaneous tissue related to radiation (principal); Y84.2 Radiological procedure and radiotherapy as the cause of abnormal reaction of the patient, or of later complication, without mention of misadventure at the time of the procedure; N30.41 Irradiation cystitis with hematuria; C61 Malignant neoplasm of prostate | CPT/HCPCS: 99183; G0277 ==

== ENCOUNTER → 2025-09-06 11:10 | Outpatient (CLI) | payer MEDICARE, SELFPAY ==
[2025-09-06 13:16] LABS: Alanine Aminotransferase 22 IU/L (<50); Albumin 4.2 g/dL (3.5-5.0); Albumin Globulin Ratio 1.5 (1.0-2.8); Alkaline Phosphatase 125 U/L (38-126); Blood Urea Nitrogen 20 mg/dL (9-20); Calcium 9.6 mg/dL (8.4-10.2); Carbon Dioxide 28 mmol/L (22-32); Chloride 105 mmol/L (98-107); Estimated Glomerular Filt Rate > 60 mL/min (>60); Globulin 2.8 g/dL (1.7-4.1); Glucose 92 mg/dL (70-99); HEMOLYSIS < 15 (0-50); Potassium 4.5 mmol/L (3.4-5.1); Sodium 141 mmol/L (137-145); Total Protein 7.0 g/dL (6.3-8.2)
== END ==
PROVIDERS: PCP Physician Assistant; Referring Provider Physician Assistant; Visit Provider Physician Assistant
DX: I10 Essential (primary) hypertension (principal)
CPT/HCPCS: 36415; 80053

== ENCOUNTER → 2025-09-07 09:26 | Outpatient (CLI) | payer MEDICARE, SELFPAY | LOC: WC 09:28 | PROVIDERS: PCP Physician Assistant; Visit Provider Surgery | DX: L59.8 Other specified disorders of the skin and subcutaneous tissue related to radiation (principal); Y84.2 Radiological procedure and radiotherapy as the cause of abnormal reaction of the patient, or of later complication, without mention of misadventure at the time of the procedure; N30.41 Irradiation cystitis with hematuria; C61 Malignant neoplasm of prostate | CPT/HCPCS: 99183; G0277 ==

== ENCOUNTER → 2025-09-08 11:16 | Outpatient (CLI) | payer MEDICARE, SELFPAY | LOC: WC 11:18 | PROVIDERS: PCP Physician Assistant; Referring Provider Physician Assistant; Visit Provider Surgery | DX: L59.8 Other specified disorders of the skin and subcutaneous tissue related to radiation (principal); Y84.2 Radiological procedure and radiotherapy as the cause of abnormal reaction of the patient, or of later complication, without mention of misadventure at the time of the procedure; N30.41 Irradiation cystitis with hematuria; C61 Malignant neoplasm of prostate | CPT/HCPCS: 99183; G0277 ==

== ENCOUNTER → 2025-09-09 08:09 | Outpatient (CLI) | payer MEDICARE, SELFPAY | LOC: WC 08:16 | PROVIDERS: PCP Physician Assistant; Referring Provider Physician Assistant; Visit Provider Surgery | DX: L59.8 Other specified disorders of the skin and subcutaneous tissue related to radiation (principal); Y84.2 Radiological procedure and radiotherapy as the cause of abnormal reaction of the patient, or of later complication, without mention of misadventure at the time of the procedure; N30.41 Irradiation cystitis with hematuria; C61 Malignant neoplasm of prostate | CPT/HCPCS: 99183; G0277 ==

== ENCOUNTER → 2025-09-10 15:58 | Outpatient (CLI) | payer MEDICARE, SELFPAY | LOC: WC 15:58 | PROVIDERS: PCP Physician Assistant; Referring Provider Physician Assistant; Visit Provider Physician Assistant | DX: L59.8 Other specified disorders of the skin and subcutaneous tissue related to radiation (principal); N30.41 Irradiation cystitis with hematuria; C61 Malignant neoplasm of prostate | CPT/HCPCS: 99183; G0277 ==

== ENCOUNTER → 2025-09-13 08:43 | Outpatient (CLI) | payer MEDICARE, SELFPAY | LOC: WC 08:46 | PROVIDERS: PCP Nurse Practitioner; Visit Provider Surgery | DX: L59.8 Other specified disorders of the skin and subcutaneous tissue related to radiation (principal); Y84.2 Radiological procedure and radiotherapy as the cause of abnormal reaction of the patient, or of later complication, without mention of misadventure at the time of the procedure; N30.41 Irradiation cystitis with hematuria; C61 Malignant neoplasm of prostate | CPT/HCPCS: 99183; G0277 ==

== ENCOUNTER → 2025-09-14 08:35 | Outpatient (CLI) | payer MEDICARE, SELFPAY | LOC: WC 08:37 | PROVIDERS: PCP Nurse Practitioner; Visit Provider Surgery | DX: L59.8 Other specified disorders of the skin and subcutaneous tissue related to radiation (principal); Y84.2 Radiological procedure and radiotherapy as the cause of abnormal reaction of the patient, or of later complication, without mention of misadventure at the time of the procedure; N30.41 Irradiation cystitis with hematuria; C61 Malignant neoplasm of prostate | CPT/HCPCS: 99183; G0277 ==

== ENCOUNTER → 2025-09-20 16:18 | Outpatient (CLI) | payer MEDICARE, SELFPAY | LOC: WC 16:20 | PROVIDERS: PCP Nurse Practitioner; Visit Provider Surgery | DX: L59.8 Other specified disorders of the skin and subcutaneous tissue related to radiation (principal); Y84.2 Radiological procedure and radiotherapy as the cause of abnormal reaction of the patient, or of later complication, without mention of misadventure at the time of the procedure; N30.41 Irradiation cystitis with hematuria; C61 Malignant neoplasm of prostate | CPT/HCPCS: 99183; G0277 ==

== ENCOUNTER → 2025-09-21 08:11 | Outpatient (CLI) | payer MEDICARE, SELFPAY | LOC: WC 08:13 | PROVIDERS: PCP Nurse Practitioner; Visit Provider Surgery | DX: L59.8 Other specified disorders of the skin and subcutaneous tissue related to radiation (principal); Y84.2 Radiological procedure and radiotherapy as the cause of abnormal reaction of the patient, or of later complication, without mention of misadventure at the time of the procedure; N30.41 Irradiation cystitis with hematuria; C61 Malignant neoplasm of prostate | CPT/HCPCS: 99183; G0277 ==

== ENCOUNTER → 2025-09-22 10:54 | Outpatient (CLI) | payer MEDICARE, SELFPAY | LOC: WC 10:56 | PROVIDERS: PCP Nurse Practitioner; Visit Provider Surgery | DX: L59.8 Other specified disorders of the skin and subcutaneous tissue related to radiation (principal); Y84.2 Radiological procedure and radiotherapy as the cause of abnormal reaction of the patient, or of later complication, without mention of misadventure at the time of the procedure; N30.41 Irradiation cystitis with hematuria; C61 Malignant neoplasm of prostate | CPT/HCPCS: 99183; G0277 ==